=== PATIENT | male | born 1975 | race Caucasian/White ===

== ENCOUNTER 2022-08-13 11:30 | Emergency (ER) | payer SELFPAY ==
[~2022-08-13] VITALS: Ht 160 cm; Wt 82.6 kg
[2022-08-13 11:32] VITALS: BP 154/88
--- NOTE | 2022-08-13 11:39 | NUR ---
PT AMB TO BED 3. ACCOMPANIED BY PARTNER
--- NOTE | 2022-08-13 11:45 | NUR ---
47YO MALE PT C/O SOB, BODY ACHES AND TIGHT CHEST PAIN X1WEEK. REPORTS ONSET W/ FEVERS OF 100.0 S/P "[place] BITES". CONSTANT CHEST PAIN W/ RADIATION TO BACK. MILD RELIEF AFTER MOTRIN. DENIES N/V/D, CHILLS OR ANYONE SICK AT HOME. STATES PREVIOUS S/S. PT AAOX4, SKIN WARM AND DRY. RESPIRATIONS EVEN AND UNLABORED. ON LIBRARY ASSISTANT. O2 96% RA. PARTNER AT BEDSIDE HX:DENIES FERNANDO
--- NOTE | 2022-08-13 11:53 | NUR ---
MD CUELLAR AT BEDSIDE FOR EVALUATION
--- NOTE | 2022-08-13 12:06 | NUR ---
pt swabbed for covid(argelia) and flu. handed to lab
[2022-08-13 12:10] LABS: BASOPHILS % (AUTO) 0.9 % (0.0-2.0); EOSINOPHILS # (AUTO) 0.3 K/uL (0-0.4); EOSINOPHILS % (AUTO) 6.1 % (0.0-4.0); HEMATOCRIT 43.4 % (36-52); HEMOGLOBIN 14.9 g/dL (12.0-18.0); LYMPHOCYTES # (AUTO) 2.1 K/uL (2.0-11.5); LYMPHOCYTES % (AUTO) 37.6 % (20.5-51.1); MEAN CORPUSCULAR HEMOGLOBIN 31 pg (27-31); MEAN CORPUSCULAR HGB CONC 34 g/dL (33-37); MONOCYTES # (AUTO) 0.4 K/uL (0.8-1.0); MONOCYTES % (AUTO) 6.9 % (1.7-9.3); NEUTROPHILS # (AUTO) 2.7 K/uL (1.8-7.7); NEUTROPHILS % (AUTO) 48.5 % (42.2-75.2); PLATELET COUNT (AUTO) 334 K/uL (140-450); RED BLOOD CELL COUNT(AUTO) 4.88 MIL/uL (4.20-6.10); RED CELL DISTRIBUTION WIDTH 13.9 % (11.6-13.7); WHITE BLOOD COUNT (AUTO) 5.6 K/uL (4.8-10.8)
[2022-08-13 12:22] LABS: ALBUMIN 3.5 g/dL (3.4-5.0); ANION GAP 15.9 (8-16); CARBON DIOXIDE 21.7 mmol/L (21-32); CREATININE 0.9 mg/dL (0.6-1.3); POTASSIUM 3.6 mmol/L (3.5-5.1); TOTAL BILIRUBIN 0.3 mg/dL (0.0-1.0)
--- NOTE | 2022-08-13 13:06 | NUR ---
Patient discharged with v/s stable. Written and verbal after care instructions given and explained. Patient verbalized understanding. Ambulatory with steady gait. All questions addressed prior to discharge. Advised to follow up with PMD.
== END 2022-08-13 13:08 | disposition home or self-care (01) ==
LOC: MED 11:30
DX: B34.9 Viral infection, unspecified (principal); R94.5 Abnormal results of liver function studies; Z20.822 Contact with and (suspected) exposure to COVID-19
CPT/HCPCS: 36415; 71046; 80053; 85025; 99284